=== PATIENT | male | born 1950 | race African-American/Black ===

== ENCOUNTER 2016-10-15 18:50 | Emergency (ER) | payer MEDICARE, MEDICAID ==
[~2016-10-15] VITALS: Ht 175.3 cm; Wt 82.0 kg
[~2016-10-15 18:50] MED LIST: ASPI-1158 PO; CITA20TA11 PO; DOCU240C26 PO; GABA-290 PO; GABA-529 PO; LORA10TA7 PO; NAPR-679; PRAV20TA57 PO; QUET50TA11 PO; RANI-467 PO; RISP2 PO
[2016-10-16] MEDS: ONDANSETRON HCL 4MG/2ML VIAL IV STA (00:45)
[2016-10-16] MEDS: SODIUM CHLORIDE 0.9% 1,000 ML IV ONE (00:45)
[2016-10-16] MEDS: KETOROLAC 30MG/ML VIAL IV STA (00:45)
[2016-10-16 00:54] LABS: CHLORIDE 102 mEq/L (98-107)
[2016-10-16 01:00] LABS: EOSINOPHILS % 1.5 % (0.0-5.0); HEMATOCRIT. 40.6 % (42.0-52.0); HEMOGLOBIN. 14.1 g/dL (14.0-18.0); LYMPHOCYTES % 37.7 % (20.0-50.0); MEAN CORPUSCULAR HEMOGLOBIN 29.7 pg (28.0-32.0); MEAN CORPUSCULAR VOLUME 85.9 fL (80.0-94.0); MEAN PLATELET VOLUME 8.5 fl (7.4-10.4); MONOCYTES % 8.7 % (2.0-8.0); NEUTROPHILS % 51.1 % (40.0-76.0); PLATELET 211 x1000/uL (130-400); RED BLOOD CELL COUNT 4.73 mill/uL (4.7-6.1); RED CELL DISTRIBUTION WIDTH 12.8 % (11.6-14.6)
[2016-10-16 01:02] LABS: CARBON DIOXIDE 28 mEq/L (21-32); CLARITY URINE CLEAR (CLEAR); COLOR URINE YELLOW (YELLOW); GLUCOSE URINE NEGATIVE (NEGATIVE); KETONES URINE NEGATIVE (NEGATIVE); LEUKOCYTE ESTERASE URINE NEGATIVE (NEGATIVE); NITRITE URINE NEGATIVE (NEGATIVE); OCCULT BLOOD URINE NEGATIVE (NEGATIVE); PROTEIN URINE NEGATIVE (NEGATIVE); SPECIFIC GRAVITY URINE 1.024 (1.005-1.030)
[2016-10-16 01:58] VITALS: BP 141/49
== END 2016-10-16 05:22 | disposition home or self-care (01) ==
LOC: ER 19:46
DX: N39.0 Urinary tract infection, site not specified (principal); L80 Vitiligo; I10 Essential (primary) hypertension; E78.00 Pure hypercholesterolemia, unspecified
CPT/HCPCS: 36415; 74177; 80053; 81003; 83690; 85025; 96374; 96375; 99285; J1885; J2405; J7030

== ENCOUNTER 2016-11-11 06:13 | Inpatient (IN) | payer MEDICARE, MEDICAID ==
[~2016-11-11] VITALS: Ht 170.2 cm; Wt 78.9 kg
[~2016-11-11 06:13] MED LIST changes: +QUET50TA PO; -QUET50TA11 PO
[2016-11-11] MEDS ORDERED: VISCOUS LIDOCAINE 2% 15 ML UDC PO STA (06:47)
[2016-11-11] MEDS ORDERED: MORPHINE SULFATE 4 MG/ML CPJ (NOT FOR IM USE) IV STA ×2 (06:47→10:25)
[2016-11-11] MEDS ORDERED: SODIUM CHLORIDE 0.9% 1,000 ML IV ONE (06:47)
[2016-11-11] MEDS ORDERED: MAGNESIUM/ALUMINUM HYDROXIDE/SIMETHICONE 30ML UDC PO STA (06:47)
[2016-11-11] MEDS ORDERED: ONDANSETRON HCL 4MG/2ML VIAL IV STA (06:47)
[2016-11-11 07:25] LABS: BASOPHILS % 0.5 % (0.0-2.0); EOSINOPHILS % 0.3 % (0.0-5.0); HEMATOCRIT. 42.6 % (42.0-52.0); HEMOGLOBIN. 14.6 g/dL (14.0-18.0); LYMPHOCYTES % 21.7 % (20.0-50.0); MEAN CORPUSCULAR HEMOGLOBIN 29.8 pg (28.0-32.0); MEAN CORPUSCULAR VOLUME 87.1 fL (80.0-94.0); MEAN PLATELET VOLUME 8.7 fl (7.4-10.4); NEUTROPHILS % 71.5 % (40.0-76.0); PLATELET 201 x1000/uL (130-400); RED BLOOD CELL COUNT 4.89 mill/uL (4.7-6.1)
[2016-11-11 07:35] LABS: CHLORIDE 105 mEq/L (98-107)
[2016-11-11 07:36] LABS: INR 1.1; PROTHROMBIN TIME 11.4 sec (9.4-11.6)
[2016-11-11 07:48] LABS: CARBON DIOXIDE 26 mEq/L (21-32); TROPONIN I < 0.02 ng/mL (0.00-0.04)
[2016-11-11 08:49] LABS: CLARITY URINE CLEAR (CLEAR); COLOR URINE YELLOW (YELLOW); GLUCOSE URINE NEGATIVE (NEGATIVE); KETONES URINE NEGATIVE (NEGATIVE); LEUKOCYTE ESTERASE URINE NEGATIVE (NEGATIVE); NITRITE URINE NEGATIVE (NEGATIVE); OCCULT BLOOD URINE NEGATIVE (NEGATIVE); PH URINE 5.5 (4.5-8.0); PROTEIN URINE TRACE (NEGATIVE); SPECIFIC GRAVITY URINE 1.041 (1.005-1.030)
[2016-11-11 12:11] VITALS: BP 154/81
[2016-11-11 12:12] VITALS: BP 154/81
[2016-11-11] MEDS ORDERED: HYDR25TA PO (12:43)
[2016-11-11] MEDS ORDERED: AMLO2.5T45 PO (12:43)
[2016-11-11] MEDS ORDERED: ACET-3161 PO (12:43)
[2016-11-11] MEDS ORDERED: TRAM50TA3 PO (12:43)
[2016-11-11] MEDS ORDERED: ACETAMINOPHEN 325MG TABLET PO PRN (13:45)
[2016-11-11] MEDS ORDERED: NA PHOS,M-B/NA PHOS,DI-BA ENEMA 118ML PR PRN (13:45)
[2016-11-11] MEDS ORDERED: CLONIDINE 0.1MG TABLET PO PRN (13:45)
[2016-11-11] MEDS ORDERED: DIPHENHYDRAMINE 50MG/ML VIAL IV PRN (13:45)
[2016-11-11] MEDS ORDERED: DOCUSATE SODIUM 100MG CAPSULE PO PRN (13:45)
[2016-11-11] MEDS ORDERED: AMLODIPINE 5MG TABLET PO NR (14:15)
[2016-11-11] MEDS ORDERED: REGADENOSON 0.4 MG/5 ML IV ONE (14:30)
[2016-11-11] MEDS ORDERED: POTASSIUM CHLORIDE 20MEQ TABLET SR PO SCH (14:30)
[2016-11-11] MEDS: SODIUM CHLORIDE 0.9% 1,000 ML IV SCH (14:56)
[2016-11-11] MEDS: ENOXAPARIN 40MG/0.4ML SYR SUBCUT SCH (14:57)
[2016-11-11] MEDS: MAGNESIUM/ALUMINUM HYDROXIDE/SIMETHICONE 30ML UDC PO PRN ×2 (15:40→18:14)
[2016-11-11] MEDS: MORPHINE SULFATE 2 MG/ML CPJ (NOT FOR IM USE) IV PRN ×2 (15:41→20:08)
[2016-11-11 15:49] VITALS: BP 147/76
[2016-11-11 16:58] LABS: CREATINE KINASE 130 IU/L (39-308); CREATINE KINASE MB FRACTION 1.1 ng/mL (0.5-3.6); TROPONIN I < 0.02 ng/mL (0.00-0.04)
[2016-11-11] MEDS: ONDANSETRON HCL 4MG/2ML VIAL IV PRN (17:00)
[2016-11-11] MEDS ORDERED: AMLODIPINE 2.5MG TABLET PO SCH (17:00)
[2016-11-11] MEDS ORDERED: ASPIRIN 81MG EC TABLET PO SCH (17:00)
[2016-11-11] MEDS ORDERED: HYDROCHLOROTHIAZIDE 25MG TABLET PO SCH (17:00)
[2016-11-11] MEDS ORDERED: ACETAMINOPHEN WITH CODEINE 300/30MG TABLET PO PRN (17:15)
[2016-11-11 17:46] LABS: *AMPHETAMINES SCREEN URINE NEGATIVE (NEGATIVE); *BARBITURATES SCREEN URINE NEGATIVE (NEGATIVE); *BENZODIAZEPINES SCREEN URINE NEGATIVE (NEGATIVE); *COCAINE SCREEN URINE NEGATIVE (NEGATIVE); CANNABINOID URINE SCREEN PRESUMTIVE POSITIVE (NEGATIVE); METHADONE URINE SCREEN NEGATIVE (NEGATIVE); OPIATES URINE SCREEN PRESUMTIVE POSITIVE (NEGATIVE); PHENCYCLIDINE URINE SCREEN NEGATIVE (NEGATIVE)
[2016-11-11] MEDS ORDERED: TRAMADOL 50MG TABLET PO PRN (18:00)
[2016-11-11] MEDS: LORATADINE 10MG TABLET PO SCH (18:14)
[2016-11-11] MEDS ORDERED: LORAZEPAM 2MG/ML CPJ IV PRN (19:00)
[2016-11-11 20:00] VITALS: BP 138/79
[2016-11-11] MEDS: ATORVASTATIN CALCIUM 10MG TABLET PO SCH (21:25)
[2016-11-12] VITALS: BP 148/90
[2016-11-12 01:17] LABS: CREATINE KINASE 146 IU/L (39-308); CREATINE KINASE MB FRACTION 1.8 ng/mL (0.5-3.6); TROPONIN I < 0.02 ng/mL (0.00-0.04)
[2016-11-12 04:00] VITALS: BP 155/100
[2016-11-12] MEDS: SODIUM CHLORIDE 0.9% 1,000 ML IV SCH ×2 (04:07→20:53)
[2016-11-12 06:29] LABS: BASOPHILS % 0.3 % (0.0-2.0); EOSINOPHILS % 1.7 % (0.0-5.0); HEMATOCRIT. 39.3 % (42.0-52.0); HEMOGLOBIN. 13.3 g/dL (14.0-18.0); MEAN CORPUSCULAR HEMOGLOBIN 29.6 pg (28.0-32.0); MEAN CORPUSCULAR VOLUME 87.4 fL (80.0-94.0); MEAN PLATELET VOLUME 9.3 fl (7.4-10.4); PLATELET 189 x1000/uL (130-400); RED CELL DISTRIBUTION WIDTH 12.8 % (11.6-14.6)
[2016-11-12 07:06] LABS: CHLORIDE 106 mEq/L (98-107)
[2016-11-12 07:32] LABS: CARBON DIOXIDE 24 mEq/L (21-32); HDL CHOLESTEROL 42 mg/dL (40-59); LDL CHOLESTEROL 186 mg/dL (5-100); TROPONIN I < 0.02 ng/mL (0.00-0.04)
[2016-11-12 08:00] VITALS: BP 138/71
[2016-11-12] MEDS: MORPHINE SULFATE 2 MG/ML CPJ (NOT FOR IM USE) IV PRN (08:33)
[2016-11-12] MEDS ORDERED: ASPIRIN 81MG EC TABLET PO SCH (09:00)
[2016-11-12] MEDS: ENOXAPARIN 40MG/0.4ML SYR SUBCUT SCH ×2 (09:00→13:03)
[2016-11-12] MEDS: HYDROMORPHONE HCL/PF 2MG/ML CPJ IV PRN ×2 (09:56→16:13)
[2016-11-12] MEDS ORDERED: REGADENOSON 0.4 MG/5 ML IV ONE (11:12)
[2016-11-12 12:00] VITALS: BP 140/78
[2016-11-12] MEDS: GABAPENTIN 300MG CAPSULE PO SCH (13:03)
[2016-11-12] MEDS: LORATADINE 10MG TABLET PO SCH (13:03)
[2016-11-12] MEDS: AMLODIPINE 5MG TABLET PO SCH (13:03)
[2016-11-12 16:00] VITALS: BP 149/79
[2016-11-12] MEDS ORDERED: SORBITOL 70% SOLN 30ML PO NR ×2 (16:00→20:00)
[2016-11-12] MEDS: ONDANSETRON HCL 4MG/2ML VIAL IV PRN (16:30)
[2016-11-12 20:00] VITALS: BP_SYST 144; BP_SYST 149; BP_DIAS 84; BP_DIAS 85
[2016-11-12] MEDS: PANTOPRAZOLE SODIUM 40 MG/VIAL IV SCH (20:19)
[2016-11-12] MEDS: ATORVASTATIN CALCIUM 10MG TABLET PO SCH (20:20)
[2016-11-13] VITALS: BP 134/63
[2016-11-13 04:00] VITALS: BP 121/67
[2016-11-13 05:50] LABS: INR 1.1; PROTHROMBIN TIME 11.5 sec (9.4-11.6)
[2016-11-13] MEDS ORDERED: SORBITOL 70% SOLN 30ML PO NR (06:00)
[2016-11-13 06:22] LABS: BASOPHILS % 0.8 % (0.0-2.0); EOSINOPHILS % 2.4 % (0.0-5.0); HEMATOCRIT. 38.2 % (42.0-52.0); LYMPHOCYTES % 34.7 % (20.0-50.0); MEAN CORPUSCULAR VOLUME 87.9 fL (80.0-94.0); MEAN PLATELET VOLUME 9.2 fl (7.4-10.4); MONOCYTES % 7.6 % (2.0-8.0); NEUTROPHILS % 54.5 % (40.0-76.0); PLATELET 170 x1000/uL (130-400); RED BLOOD CELL COUNT 4.34 mill/uL (4.7-6.1); RED CELL DISTRIBUTION WIDTH 12.9 % (11.6-14.6)
[2016-11-13 06:50] LABS: CARBON DIOXIDE 24 mEq/L (21-32); CHLORIDE 110 mEq/L (98-107)
[2016-11-13 08:00] VITALS: BP 129/76
[2016-11-13] MEDS: PANTOPRAZOLE SODIUM 40 MG/VIAL IV SCH ×2 (08:31→20:46)
[2016-11-13] MEDS: GABAPENTIN 300MG CAPSULE PO SCH (08:31)
[2016-11-13] MEDS: LORATADINE 10MG TABLET PO SCH (08:31)
[2016-11-13] MEDS: AMLODIPINE 5MG TABLET PO SCH (08:32)
[2016-11-13] MEDS: SODIUM CHLORIDE 0.9% 1,000 ML IV SCH ×2 (13:50→20:46)
[2016-11-13 14:23] VITALS: BP 141/57
[2016-11-13] MEDS ORDERED: FENTANYL CITRATE/PF 50MCG/ML 2ML VIAL ONE (15:52)
[2016-11-13] MEDS ORDERED: MIDAZOLAM HCL 5 MG/5 ML VIAL ONE (15:53)
[2016-11-13] MEDS ORDERED: FENTANYL CITRATE/PF 50MCG/ML 2ML VIAL IV PRN (16:23)
[2016-11-13] MEDS ORDERED: MIDAZOLAM HCL 5 MG/5 ML VIAL IV PRN (16:23)
[2016-11-13 18:00] VITALS: BP 108/65
[2016-11-13 20:00] VITALS: BP 127/74
[2016-11-13] MEDS: ATORVASTATIN CALCIUM 10MG TABLET PO SCH (20:46)
[2016-11-14] VITALS: BP 135/64
[2016-11-14 04:00] VITALS: BP 140/62
[2016-11-14 06:40] LABS: CARBON DIOXIDE 24 mEq/L (21-32); CHLORIDE 111 mEq/L (98-107)
[2016-11-14 06:51] LABS: BASOPHILS % 0.6 % (0.0-2.0); EOSINOPHILS % 4.7 % (0.0-5.0); HEMATOCRIT. 37.7 % (42.0-52.0); HEMOGLOBIN. 12.8 g/dL (14.0-18.0); LYMPHOCYTES % 24.8 % (20.0-50.0); MEAN CORPUSCULAR HEMOGLOBIN 29.8 pg (28.0-32.0); MEAN CORPUSCULAR VOLUME 87.4 fL (80.0-94.0); MEAN PLATELET VOLUME 9.4 fl (7.4-10.4); MONOCYTES % 8.3 % (2.0-8.0); NEUTROPHILS % 61.6 % (40.0-76.0); PLATELET 166 x1000/uL (130-400); RED BLOOD CELL COUNT 4.31 mill/uL (4.7-6.1); RED CELL DISTRIBUTION WIDTH 12.8 % (11.6-14.6)
[2016-11-14] MEDS: SODIUM CHLORIDE 0.9% 1,000 ML IV SCH (08:40)
[2016-11-14] MEDS: PANTOPRAZOLE SODIUM 40 MG/VIAL IV SCH (09:33)
[2016-11-14] MEDS: AMLODIPINE 5MG TABLET PO SCH (09:41)
[2016-11-14] MEDS: GABAPENTIN 300MG CAPSULE PO SCH (09:41)
[2016-11-14] MEDS: LORATADINE 10MG TABLET PO SCH (09:41)
[2016-11-14 11:12] VITALS: BP 136/74
[2016-11-14] MEDS ORDERED: POTASSIUM CHLORIDE 20MEQ TABLET SR PO SCH (11:15)
== END 2016-11-14 14:35 | disposition home or self-care (01) | DRG 241 ==
LOC: ER 07:24 → 6WST 09:49 → ENRESERV 10:39
PROVIDERS: ADMIT Hospitalist; ATTEND Hospitalist
PROC: 0DJD8ZZ Inspection of Lower Intestinal Tract, Via Natural or Artificial Opening Endoscopic (ICD-10-PCS; 2016-11-13)
PROC: 0DB68ZX Excision of Stomach, Via Natural or Artificial Opening Endoscopic, Diagnostic (ICD-10-PCS; principal; 2016-11-13 16:00)
DX: K26.9 Duodenal ulcer, unspecified as acute or chronic, without hemorrhage or perforation (principal); I11.9 Hypertensive heart disease without heart failure; J44.9 Chronic obstructive pulmonary disease, unspecified; R55 Syncope and collapse; F45.8 Other somatoform disorders; K29.60 Other gastritis without bleeding; K44.9 Diaphragmatic hernia without obstruction or gangrene; K64.8 Other hemorrhoids; K29.80 Duodenitis without bleeding; E78.1 Pure hyperglyceridemia; E78.00 Pure hypercholesterolemia, unspecified; E87.6 Hypokalemia; N40.0 Benign prostatic hyperplasia without lower urinary tract symptoms; R63.4 Abnormal weight loss; E78.5 Hyperlipidemia, unspecified; E86.0 Dehydration; I99.8 Other disorder of circulatory system; Z79.899 Other long term (current) drug therapy; Z87.891 Personal history of nicotine dependence; Z88.8 Allergy status to other drugs, medicaments and biological substances; Z68.27 Body mass index [BMI] 27.0-27.9, adult
CPT/HCPCS: 36415; 70450; 71010; 72100; 74176; 78452; 80048; 80053; 80061; 80305; 81001; 82550; 82553; 83605; 83690; 84484; 85025; 85610; 85730; 88305; 88312; 88313; 93005; 93017; 93306; 93880; 96361; 96374; 96375; 96376; 99152; 99153; 99285; A9500; C9113; J1170; J1650; J2250; J2270; J2405; J2785; J3010; J7030

== ENCOUNTER 2016-11-26 09:06 | Emergency (ER) | payer MEDICARE, MEDICAID ==
[~2016-11-26] VITALS: Ht 177.8 cm; Wt 77.0 kg
[~2016-11-26 09:06] MED LIST changes: +ACET-3161 PO; +AMLO2.5T45 PO; -CITA20TA11 PO; +HYDR25TA PO; -QUET50TA PO; -RISP2 PO; +TRAM50TA3 PO
[2016-11-26] MEDS ORDERED: ONDANSETRON HCL 4MG/2ML VIAL IV STA (10:59)
[2016-11-26] MEDS ORDERED: MORPHINE SULFATE 4 MG/ML CPJ (NOT FOR IM USE) IV STA (10:59)
[2016-11-26 11:29] VITALS: BP 134/57
[2016-11-26 11:36] LABS: CLARITY URINE CLEAR (CLEAR); COLOR URINE YELLOW (YELLOW); GLUCOSE URINE NEGATIVE (NEGATIVE); KETONES URINE NEGATIVE (NEGATIVE); LEUKOCYTE ESTERASE URINE NEGATIVE (NEGATIVE); NITRITE URINE NEGATIVE (NEGATIVE); OCCULT BLOOD URINE NEGATIVE (NEGATIVE); PH URINE >=9.0 (4.5-8.0); PROTEIN URINE NEGATIVE (NEGATIVE); SPECIFIC GRAVITY URINE 1.011 (1.005-1.030)
[2016-11-26 11:42] LABS: BASOPHILS % 0.9 % (0.0-2.0); EOSINOPHILS % 0.6 % (0.0-5.0); HEMATOCRIT. 43.5 % (42.0-52.0); HEMOGLOBIN. 14.7 g/dL (14.0-18.0); LYMPHOCYTES % 16.2 % (20.0-50.0); MEAN CORPUSCULAR HEMOGLOBIN 29.6 pg (28.0-32.0); MEAN CORPUSCULAR VOLUME 87.3 fL (80.0-94.0); MEAN PLATELET VOLUME 8.8 fl (7.4-10.4); MONOCYTES % 3.3 % (2.0-8.0); PLATELET 215 x1000/uL (130-400); RED BLOOD CELL COUNT 4.98 mill/uL (4.7-6.1)
[2016-11-26 11:50] LABS: CARBON DIOXIDE 28 mEq/L (21-32); CHLORIDE 104 mEq/L (98-107); PROTHROMBIN TIME 10.7 sec (9.4-11.6)
== END 2016-11-26 13:15 | disposition home or self-care (01) ==
LOC: ER 09:10
DX: R10.9 Unspecified abdominal pain (principal); E78.00 Pure hypercholesterolemia, unspecified; I10 Essential (primary) hypertension; F12.10 Cannabis abuse, uncomplicated; Z79.82 Long term (current) use of aspirin; Z88.6 Allergy status to analgesic agent; Z88.1 Allergy status to other antibiotic agents
CPT/HCPCS: 36415; 74176; 80053; 81003; 83690; 85025; 85610; 96374; 96375; 99285; J2270; J2405

== ENCOUNTER 2016-11-26 23:01 | Emergency (ER) | payer MEDICARE, MEDICAID ==
[~2016-11-26] VITALS: Ht 175.3 cm; Wt 79.0 kg
[2016-11-27] MEDS ORDERED: MAGNESIUM/ALUMINUM HYDROXIDE/SIMETHICONE 30ML UDC PO STA (06:25)
[2016-11-27] MEDS ORDERED: FAMOTIDINE 20MG/2ML VIAL IV STA (06:25)
[2016-11-27] MEDS ORDERED: SODIUM CHLORIDE 0.9% 1,000 ML IV ONE (06:25)
[2016-11-27] MEDS ORDERED: ONDANSETRON HCL 4MG/2ML VIAL IV STA (06:25)
[2016-11-27] MEDS ORDERED: MORPHINE SULFATE 4 MG/ML CPJ (NOT FOR IM USE) IV STA (06:25)
[2016-11-27 06:50] LABS: CLARITY URINE CLEAR (CLEAR); COLOR URINE YELLOW (YELLOW); GLUCOSE URINE NEGATIVE (NEGATIVE); KETONES URINE NEGATIVE (NEGATIVE); LEUKOCYTE ESTERASE URINE NEGATIVE (NEGATIVE); NITRITE URINE NEGATIVE (NEGATIVE); OCCULT BLOOD URINE NEGATIVE (NEGATIVE); PROTEIN URINE NEGATIVE (NEGATIVE); SPECIFIC GRAVITY URINE 1.029 (1.005-1.030)
[2016-11-27 07:06] LABS: HEMATOCRIT. 43.9 % (42.0-52.0); MEAN CORPUSCULAR HEMOGLOBIN 29.8 pg (28.0-32.0); MEAN CORPUSCULAR VOLUME 87.2 fL (80.0-94.0); MEAN PLATELET VOLUME 8.9 fl (7.4-10.4); PLATELET 218 x1000/uL (130-400); RED BLOOD CELL COUNT 5.03 mill/uL (4.7-6.1); RED CELL DISTRIBUTION WIDTH 13.2 % (11.6-14.6)
[2016-11-27 07:06] LABS: *AMPHETAMINES SCREEN URINE NEGATIVE (NEGATIVE); *BARBITURATES SCREEN URINE NEGATIVE (NEGATIVE); *BENZODIAZEPINES SCREEN URINE NEGATIVE (NEGATIVE); *COCAINE SCREEN URINE NEGATIVE (NEGATIVE); CANNABINOID URINE SCREEN PRESUMTIVE POSITIVE (NEGATIVE); METHADONE URINE SCREEN NEGATIVE (NEGATIVE); OPIATES URINE SCREEN PRESUMTIVE POSITIVE (NEGATIVE); PHENCYCLIDINE URINE SCREEN NEGATIVE (NEGATIVE)
[2016-11-27 07:12] LABS: PROTHROMBIN TIME 10.7 sec (9.4-11.6)
[2016-11-27 07:15] LABS: CHLORIDE 101 mEq/L (98-107)
[2016-11-27 07:24] LABS: CARBON DIOXIDE 28 mEq/L (21-32); ETHANOL BLOOD < 10 mg/dL
[2016-11-27 09:17] VITALS: BP 159/82
[2016-11-27 09:46] LABS: PLATELET ESTIMATE NORMAL
== END 2016-11-27 10:15 | disposition home or self-care (01) ==
LOC: ER 23:55
DX: R10.9 Unspecified abdominal pain (principal); E78.5 Hyperlipidemia, unspecified; I10 Essential (primary) hypertension; Z79.82 Long term (current) use of aspirin; Z98.890 Other specified postprocedural states; Z88.6 Allergy status to analgesic agent; Z88.1 Allergy status to other antibiotic agents
CPT/HCPCS: 36415; 74010; 74176; 80053; 80305; 81003; 83690; 85025; 85610; 96361; 96374; 96375; 99285; G0482; J2270; J2405; J3490; J7030

== ENCOUNTER 2016-12-06 11:15 | Emergency (ER) | payer MEDICARE, MEDICAID ==
[~2016-12-06] VITALS: Ht 177.8 cm; Wt 82.0 kg
[2016-12-06 14:46] LABS: CLARITY URINE CLEAR (CLEAR); COLOR URINE YELLOW (YELLOW); GLUCOSE URINE NEGATIVE (NEGATIVE); KETONES URINE NEGATIVE (NEGATIVE); LEUKOCYTE ESTERASE URINE NEGATIVE (NEGATIVE); NITRITE URINE NEGATIVE (NEGATIVE); OCCULT BLOOD URINE NEGATIVE (NEGATIVE); PH URINE >=9.0 (4.5-8.0); PROTEIN URINE NEGATIVE (NEGATIVE); SPECIFIC GRAVITY URINE 1.019 (1.005-1.030)
[2016-12-06 14:48] LABS: HEMATOCRIT. 40.2 % (42.0-52.0); HEMOGLOBIN. 13.6 g/dL (14.0-18.0); MEAN CORPUSCULAR HEMOGLOBIN 29.5 pg (28.0-32.0); MEAN PLATELET VOLUME 8.9 fl (7.4-10.4); PLATELET 207 x1000/uL (130-400); RED BLOOD CELL COUNT 4.63 mill/uL (4.7-6.1); RED CELL DISTRIBUTION WIDTH 12.8 % (11.6-14.6)
[2016-12-06 14:56] LABS: CHLORIDE 103 mEq/L (98-107)
[2016-12-06] MEDS ORDERED: MORPHINE SULFATE 4 MG/ML CPJ (NOT FOR IM USE) IV STA (14:56)
[2016-12-06] MEDS ORDERED: SODIUM CHLORIDE 0.9% 1,000 ML IV ONE (14:56)
[2016-12-06] MEDS ORDERED: ONDANSETRON HCL 4MG/2ML VIAL IV STA (14:56)
[2016-12-06 15:05] LABS: CARBON DIOXIDE 26 mEq/L (21-32)
[2016-12-06 15:22] LABS: *AMPHETAMINES SCREEN URINE NEGATIVE (NEGATIVE); *BARBITURATES SCREEN URINE NEGATIVE (NEGATIVE); *BENZODIAZEPINES SCREEN URINE NEGATIVE (NEGATIVE); *COCAINE SCREEN URINE NEGATIVE (NEGATIVE); CANNABINOID URINE SCREEN PRESUMTIVE POSITIVE (NEGATIVE); METHADONE URINE SCREEN NEGATIVE (NEGATIVE); OPIATES URINE SCREEN PRESUMTIVE POSITIVE (NEGATIVE); PHENCYCLIDINE URINE SCREEN NEGATIVE (NEGATIVE)
[2016-12-06 15:26] LABS: PLATELET ESTIMATE NORMAL
[2016-12-06 16:26] VITALS: BP 128/52
== END 2016-12-06 16:29 | disposition home or self-care (01) ==
LOC: ER 11:15
DX: R10.9 Unspecified abdominal pain (principal); I10 Essential (primary) hypertension; E78.00 Pure hypercholesterolemia, unspecified; Z88.6 Allergy status to analgesic agent; Z88.1 Allergy status to other antibiotic agents
CPT/HCPCS: 36415; 80053; 80305; 81003; 83690; 85025; 96361; 96374; 96375; 99284; J2270; J2405; J7030

== ENCOUNTER 2016-12-09 11:35 | Emergency (ER) | payer MEDICARE, MEDICAID ==
[~2016-12-09] VITALS: Ht 180.3 cm; Wt 80.0 kg
[2016-12-09] MEDS ORDERED: SODIUM CHLORIDE 0.9% 1,000 ML IV ONE (17:24)
[2016-12-09] MEDS ORDERED: MORPHINE SULFATE 4 MG/ML CPJ (NOT FOR IM USE) IV STA (17:24)
[2016-12-09] MEDS ORDERED: ONDANSETRON HCL 4MG/2ML VIAL IV STA (17:24)
[2016-12-09 17:51] LABS: CHLORIDE 109 mEq/L (98-107)
[2016-12-09 17:57] LABS: CARBON DIOXIDE 25 mEq/L (21-32); INR 1.1; PROTHROMBIN TIME 11.2 sec (9.4-11.6)
[2016-12-09 18:02] LABS: BASOPHILS % 1.2 % (0.0-2.0); EOSINOPHILS % 1.2 % (0.0-5.0); HEMATOCRIT. 42.8 % (42.0-52.0); HEMOGLOBIN. 14.5 g/dL (14.0-18.0); LYMPHOCYTES % 33.7 % (20.0-50.0); MEAN CORPUSCULAR HEMOGLOBIN 29.3 pg (28.0-32.0); MEAN CORPUSCULAR VOLUME 86.3 fL (80.0-94.0); MEAN PLATELET VOLUME 8.6 fl (7.4-10.4); MONOCYTES % 6.4 % (2.0-8.0); NEUTROPHILS % 57.5 % (40.0-76.0); PLATELET 207 x1000/uL (130-400); RED BLOOD CELL COUNT 4.96 mill/uL (4.7-6.1); RED CELL DISTRIBUTION WIDTH 12.6 % (11.6-14.6)
[2016-12-09 18:22] LABS: CLARITY URINE CLEAR (CLEAR); COLOR URINE DARK YELLOW (YELLOW); GLUCOSE URINE NEGATIVE (NEGATIVE); KETONES URINE NEGATIVE (NEGATIVE); LEUKOCYTE ESTERASE URINE 1+ (NEGATIVE); NITRITE URINE NEGATIVE (NEGATIVE); OCCULT BLOOD URINE NEGATIVE (NEGATIVE); PH URINE 6.5 (4.5-8.0); PROTEIN URINE NEGATIVE (NEGATIVE)
[2016-12-09 19:30] VITALS: BP 157/74
== END 2016-12-09 20:15 | disposition home or self-care (01) ==
LOC: ER 11:43
DX: N39.0 Urinary tract infection, site not specified (principal); R10.9 Unspecified abdominal pain; I10 Essential (primary) hypertension; K57.90 Diverticulosis of intestine, part unspecified, without perforation or abscess without bleeding; F17.210 Nicotine dependence, cigarettes, uncomplicated; Z88.1 Allergy status to other antibiotic agents; Z88.6 Allergy status to analgesic agent; Z79.82 Long term (current) use of aspirin
CPT/HCPCS: 36415; 71010; 74176; 80053; 81001; 83690; 85025; 85610; 93005; 96361; 96374; 96375; 99285; J2270; J2405; J7030

== ENCOUNTER 2016-12-10 16:47 | Inpatient (IN) | payer MEDICARE, MEDICAID ==
[~2016-12-10] VITALS: Ht 175.3 cm; Wt 77.1 kg
[2016-12-10] MEDS ORDERED: MORPHINE SULFATE 4 MG/ML CPJ (NOT FOR IM USE) IV STA (17:32)
[2016-12-10] MEDS ORDERED: ONDANSETRON HCL 4MG/2ML VIAL IV STA (17:32)
[2016-12-10] MEDS ORDERED: PANTOPRAZOLE SODIUM 40 MG/VIAL IV STA (17:32)
[2016-12-10 18:08] LABS: BASOPHILS % 0.8 % (0.0-2.0); EOSINOPHILS % 0.5 % (0.0-5.0); HEMATOCRIT. 38.4 % (42.0-52.0); HEMOGLOBIN. 13.3 g/dL (14.0-18.0); MEAN CORPUSCULAR HEMOGLOBIN 29.6 pg (28.0-32.0); MEAN CORPUSCULAR VOLUME 85.6 fL (80.0-94.0); MEAN PLATELET VOLUME 8.6 fl (7.4-10.4); MONOCYTES % 6.7 % (2.0-8.0); PLATELET 188 x1000/uL (130-400); RED BLOOD CELL COUNT 4.48 mill/uL (4.7-6.1); RED CELL DISTRIBUTION WIDTH 13.1 % (11.6-14.6)
[2016-12-10 18:11] LABS: CARBON DIOXIDE 26 mEq/L (21-32); CHLORIDE 107 mEq/L (98-107)
[2016-12-10 19:31] LABS: CLARITY URINE CLEAR (CLEAR); COLOR URINE YELLOW (YELLOW); GLUCOSE URINE NEGATIVE (NEGATIVE); KETONES URINE TRACE (NEGATIVE); LEUKOCYTE ESTERASE URINE NEGATIVE (NEGATIVE); NITRITE URINE NEGATIVE (NEGATIVE); OCCULT BLOOD URINE NEGATIVE (NEGATIVE); PH URINE 5.5 (4.5-8.0); PROTEIN URINE NEGATIVE (NEGATIVE); SPECIFIC GRAVITY URINE 1.014 (1.005-1.030)
[2016-12-10] MEDS ORDERED: CLONIDINE 0.1MG TABLET PO PRN (23:00)
[2016-12-10] MEDS ORDERED: ACETAMINOPHEN 650MG SUPP PR PRN (23:00)
[2016-12-10] MEDS ORDERED: DOCUSATE SODIUM 100MG CAPSULE PO PRN (23:00)
[2016-12-10] MEDS ORDERED: ONDANSETRON HCL 4MG/2ML VIAL IV PRN (23:00)
[2016-12-10] MEDS ORDERED: DIPHENHYDRAMINE 50MG/ML VIAL IV PRN (23:00)
[2016-12-10] MEDS ORDERED: ACETAMINOPHEN 650MG/20.3ML UDC GT PRN (23:00)
[2016-12-10] MEDS ORDERED: NA PHOS,M-B/NA PHOS,DI-BA ENEMA 118ML PR PRN (23:00)
[2016-12-10] MEDS ORDERED: ACETAMINOPHEN 325MG TABLET PO PRN (23:00)
[2016-12-10] MEDS ORDERED: IPRATROPIUM/ALBUTEROL 0.5-3(2.5)MG/3ML NEB INH PRN (23:00)
[2016-12-10] MEDS ORDERED: GUAIFENESIN 200MG/10ML SUGAR FREE UDC PO PRN (23:00)
[2016-12-10] MEDS ORDERED: MAGNESIUM/ALUMINUM HYDROXIDE/SIMETHICONE 30ML UDC PO PRN (23:00)
[2016-12-11] VITALS (7 sets, daily range): BP systolic 129–156; BP diastolic 61–84
[2016-12-11] MEDS ORDERED: PANT40TA4 PO (00:29)
[2016-12-11] MEDS ORDERED: MAGNESIUM CITRATE 300ML SOLUTION PO SCH (02:00)
[2016-12-11] MEDS: SODIUM CHLORIDE 0.45% 1,000 ML IV SCH ×2 (05:26→20:23)
[2016-12-11] MEDS: SODIUM CHLORIDE 0.9% INJ 3ML FLUSH IVF SCH ×3 (05:28→18:22)
[2016-12-11] MEDS: METOCLOPRAMIDE HCL 10MG/2ML VIAL IV SCH ×4 (05:28→23:39)
[2016-12-11 06:22] LABS: BASOPHILS % 0.7 % (0.0-2.0); EOSINOPHILS % 2.2 % (0.0-5.0); HEMATOCRIT. 40.1 % (42.0-52.0); HEMOGLOBIN. 13.7 g/dL (14.0-18.0); LYMPHOCYTES % 39.7 % (20.0-50.0); MEAN CORPUSCULAR HEMOGLOBIN 29.6 pg (28.0-32.0); MEAN CORPUSCULAR VOLUME 86.5 fL (80.0-94.0); MEAN PLATELET VOLUME 8.6 fl (7.4-10.4); MONOCYTES % 8.1 % (2.0-8.0); NEUTROPHILS % 49.3 % (40.0-76.0); PLATELET 195 x1000/uL (130-400); RED BLOOD CELL COUNT 4.63 mill/uL (4.7-6.1)
[2016-12-11 07:04] LABS: CARBON DIOXIDE 30 mEq/L (21-32); CHLORIDE 105 mEq/L (98-107); CREATINE KINASE 151 IU/L (39-308); HDL CHOLESTEROL 54 mg/dL (40-59); LDL CHOLESTEROL 167 mg/dL (5-100)
[2016-12-11 07:06] LABS: TROPONIN I < 0.02 ng/mL (0.00-0.04)
[2016-12-11 08:14] LABS: CLARITY URINE CLEAR (CLEAR); COLOR URINE YELLOW (YELLOW); GLUCOSE URINE NEGATIVE (NEGATIVE); KETONES URINE TRACE (NEGATIVE); LEUKOCYTE ESTERASE URINE NEGATIVE (NEGATIVE); NITRITE URINE NEGATIVE (NEGATIVE); OCCULT BLOOD URINE NEGATIVE (NEGATIVE); PROTEIN URINE NEGATIVE (NEGATIVE); SPECIFIC GRAVITY URINE 1.027 (1.005-1.030)
[2016-12-11 08:30] LABS: *AMPHETAMINES SCREEN URINE NEGATIVE (NEGATIVE); *BARBITURATES SCREEN URINE NEGATIVE (NEGATIVE); *BENZODIAZEPINES SCREEN URINE NEGATIVE (NEGATIVE); *COCAINE SCREEN URINE NEGATIVE (NEGATIVE); CANNABINOID URINE SCREEN PRESUMTIVE POSITIVE (NEGATIVE); METHADONE URINE SCREEN NEGATIVE (NEGATIVE); OPIATES URINE SCREEN PRESUMTIVE POSITIVE (NEGATIVE); PHENCYCLIDINE URINE SCREEN NEGATIVE (NEGATIVE)
[2016-12-11] MEDS: FAMOTIDINE 20MG/2ML VIAL IV SCH ×2 (10:47→20:23)
[2016-12-11] MEDS: ENOXAPARIN 40MG/0.4ML SYR SUBCUT SCH (10:47)
[2016-12-11] MEDS: MORPHINE SULFATE 4 MG/ML CPJ (NOT FOR IM USE) IV PRN ×2 (12:15→16:39)
[2016-12-11 17:18] LABS: TROPONIN I < 0.02 ng/mL (0.00-0.04)
[2016-12-11 17:25] LABS: CREATINE KINASE 189 IU/L (39-308)
[2016-12-11] MEDS ORDERED: TRAMADOL 50MG TABLET PO PRN (20:30)
[2016-12-11] MEDS ORDERED: LACTULOSE 20G/30ML UDC PO NR (20:30)
[2016-12-11] MEDS ORDERED: ACETAMINOPHEN WITH CODEINE 300/30MG TABLET PO PRN (20:30)
[2016-12-11] MEDS: GABAPENTIN 300MG CAPSULE PO SCH (21:36)
[2016-12-11] MEDS: HYDROCHLOROTHIAZIDE 25MG TABLET PO SCH (21:36)
[2016-12-11] MEDS: AMLODIPINE 5MG TABLET PO SCH (21:36)
[2016-12-11] MEDS: LORATADINE 10MG TABLET PO SCH (21:36)
[2016-12-11] MEDS ORDERED: MAGNESIUM CITRATE 300ML SOLUTION PO NR (22:00)
[2016-12-12] VITALS: BP 119/67
[2016-12-12 04:00] VITALS: BP 147/66
[2016-12-12 05:22] LABS: BASOPHILS % 0.6 % (0.0-2.0); EOSINOPHILS % 3.3 % (0.0-5.0); HEMATOCRIT. 40.9 % (42.0-52.0); HEMOGLOBIN. 13.9 g/dL (14.0-18.0); MEAN CORPUSCULAR HEMOGLOBIN 29.3 pg (28.0-32.0); MEAN CORPUSCULAR VOLUME 86.5 fL (80.0-94.0); MEAN PLATELET VOLUME 8.7 fl (7.4-10.4); MONOCYTES % 9.7 % (2.0-8.0); NEUTROPHILS % 40.4 % (40.0-76.0); PLATELET 193 x1000/uL (130-400); RED BLOOD CELL COUNT 4.73 mill/uL (4.7-6.1); RED CELL DISTRIBUTION WIDTH 13.1 % (11.6-14.6)
[2016-12-12] MEDS: METOCLOPRAMIDE HCL 10MG/2ML VIAL IV SCH ×2 (05:36→12:00)
[2016-12-12] MEDS: SODIUM CHLORIDE 0.9% INJ 3ML FLUSH IVF SCH ×2 (05:36→14:00)
[2016-12-12] MEDS ORDERED: MAGNESIUM CITRATE 300ML SOLUTION PO NR (06:00)
[2016-12-12] MEDS ORDERED: PANTOPRAZOLE 40MG DR TABLET PO SCH (07:20)
[2016-12-12 08:00] VITALS: BP 122/64
[2016-12-12 08:10] LABS: CARBON DIOXIDE 29 mEq/L (21-32); CHLORIDE 104 mEq/L (98-107)
[2016-12-12] MEDS: AMLODIPINE 5MG TABLET PO SCH (09:40)
[2016-12-12] MEDS: FAMOTIDINE 20MG/2ML VIAL IV SCH (09:40)
[2016-12-12] MEDS: HYDROCHLOROTHIAZIDE 25MG TABLET PO SCH (09:40)
[2016-12-12] MEDS: LORATADINE 10MG TABLET PO SCH (09:40)
[2016-12-12] MEDS: GABAPENTIN 300MG CAPSULE PO SCH (09:40)
[2016-12-12] MEDS: ENOXAPARIN 40MG/0.4ML SYR SUBCUT SCH (09:43)
[2016-12-12] MEDS: SODIUM CHLORIDE 0.45% 1,000 ML IV SCH (09:44)
[2016-12-12 12:00] VITALS: BP 130/100
[2016-12-12 13:58] VITALS: BP 130/75
== END 2016-12-12 14:53 | disposition home or self-care (01) | DRG 241 ==
LOC: ER 18:56 → 6WST 21:53 → ENRESERV 23:01 → CANRESERV 23:01 → EDBEDREQSVC 23:26 → ENRESERV 23:31 → 6EST 12-11 01:23
PROVIDERS: ADMIT Family Medicine; ATTEND Family Medicine
DX: K26.9 Duodenal ulcer, unspecified as acute or chronic, without hemorrhage or perforation (principal); I10 Essential (primary) hypertension; K59.00 Constipation, unspecified; K57.90 Diverticulosis of intestine, part unspecified, without perforation or abscess without bleeding; R55 Syncope and collapse; E78.5 Hyperlipidemia, unspecified; E78.00 Pure hypercholesterolemia, unspecified; K29.60 Other gastritis without bleeding; K29.80 Duodenitis without bleeding; K44.9 Diaphragmatic hernia without obstruction or gangrene; K64.8 Other hemorrhoids; N40.0 Benign prostatic hyperplasia without lower urinary tract symptoms; Z88.1 Allergy status to other antibiotic agents; Z88.6 Allergy status to analgesic agent; Z87.440 Personal history of urinary (tract) infections; Z79.1 Long term (current) use of non-steroidal anti-inflammatories (NSAID); Z79.899 Other long term (current) drug therapy; Z79.82 Long term (current) use of aspirin
CPT/HCPCS: 36415; 74000; 76700; 80048; 80053; 80061; 80305; 81003; 82550; 83690; 84484; 85025; 96374; 96375; 99285; C9113; J1200; J1650; J2270; J2405; J2765; J3490

== ENCOUNTER 2017-02-19 04:28 | Emergency (ER) | payer MEDICARE, MEDICAID ==
[~2017-02-19] VITALS: Ht 180.3 cm; Wt 91.0 kg
[~2017-02-19 04:28] MED LIST changes: +PANT40TA4 PO
[2017-02-19 05:54] LABS: CLARITY URINE CLEAR (CLEAR); COLOR URINE YELLOW (YELLOW); KETONES URINE NEGATIVE (NEGATIVE); LEUKOCYTE ESTERASE URINE NEGATIVE (NEGATIVE); NITRITE URINE NEGATIVE (NEGATIVE); OCCULT BLOOD URINE NEGATIVE (NEGATIVE); PROTEIN URINE NEGATIVE (NEGATIVE); UROBILINOGEN URINE 0.2 E.U./dL (0.2-1.0)
[2017-02-19] MEDS ORDERED: DICYCLOMINE 10 MG/5 ML ORAL SYR PO STA (06:17)
[2017-02-19] MEDS ORDERED: MAGNESIUM/ALUMINUM HYDROXIDE/SIMETHICONE 30ML UDC PO STA (06:17)
[2017-02-19] MEDS ORDERED: VISCOUS LIDOCAINE 2% 15 ML UDC PO STA (06:17)
[2017-02-19] MEDS ORDERED: ONDANSETRON 4MG ODT PO STA (06:17)
[2017-02-19 06:56] LABS: CHLORIDE 105 mEq/L (98-107)
[2017-02-19 07:02] LABS: BASOPHILS % 0.7 % (0.0-2.0); EOSINOPHILS % 1.2 % (0.0-5.0); HEMATOCRIT. 43.9 % (42.0-52.0); HEMOGLOBIN. 14.9 g/dL (14.0-18.0); LYMPHOCYTES % 24.5 % (20.0-50.0); MEAN CORPUSCULAR VOLUME 88.5 fL (80.0-94.0); MEAN PLATELET VOLUME 8.1 fl (7.4-10.4); MONOCYTES % 7.5 % (2.0-8.0); NEUTROPHILS % 66.1 % (40.0-76.0); PLATELET 214 x1000/uL (130-400); RED BLOOD CELL COUNT 4.97 mill/uL (4.7-6.1); RED CELL DISTRIBUTION WIDTH 13.7 % (11.6-14.6)
[2017-02-19 07:04] LABS: CARBON DIOXIDE 29 mEq/L (21-32)
[2017-02-19 07:20] VITALS: BP 169/99
[2017-02-19] MEDS ORDERED: SUCRALFATE 1 G/10 ML UDC PO SCH (09:00)
== END 2017-02-19 07:54 | disposition home or self-care (01) ==
LOC: ER 04:28
DX: K29.70 Gastritis, unspecified, without bleeding (principal); E78.00 Pure hypercholesterolemia, unspecified; I10 Essential (primary) hypertension; Z79.82 Long term (current) use of aspirin; Z88.6 Allergy status to analgesic agent; Z87.440 Personal history of urinary (tract) infections; Z88.1 Allergy status to other antibiotic agents
CPT/HCPCS: 36415; 80053; 81003; 85025; 93005; 99285; Q0162

== ENCOUNTER 2017-03-08 12:09 | Emergency (ER) | payer MEDICARE, MEDICAID ==
[~2017-03-08] VITALS: Ht 175.3 cm; Wt 79.0 kg
[2017-03-08 12:42] VITALS: BP 151/83
== END 2017-03-08 17:38 | disposition left against medical advice (07) ==
LOC: ER 13:30
DX: R10.9 Unspecified abdominal pain (principal); Z53.21 Procedure and treatment not carried out due to patient leaving prior to being seen by health care provider